=== PATIENT | female | born 1955 | race Caucasian/White ===

== ENCOUNTER 2018-07-20 07:30 | Inpatient (IN) | payer OTHER ==
[2018-08-09] MEDS ORDERED: Buffered Lidocaine 0.9% SYRIN* 5 ML/SYR SYRINGE INTRADERM ONE (10:04)
[2018-08-10] MEDS ORDERED: Morphine VIAL* 10 MG/ML 1 ML VIAL ONE (06:05)
--- OUTSIDE RECORDS SUMMARY | 2018-08-10 08:17 | XMS REPORT ---
:1955 External Reference #:[id number] Author Organization [facility] Address [address] [place] [address] Phone [phone] Care Team Providers Name Role Phone Hetal St NP Primary Care Physician Unavailable Payers Type Date Identification Numbers Payment Provider Subscriber Commercial Policy Number: [id number] [employer] Karly Espinoza Group Number: [id number] [address] PayID: [id number] [place] [address] Problems Date Description Provider Status Onset: 07/06/2013 Electrocardiogram abnormal Cezar Toledo M.D. Onset: 07/06/2013 Chest pain Cezar Toledo M.D. Onset: 07/06/2013 Tachycardia Cezar Toledo M.D. Onset: 07/06/2013 Mixed hyperlipidemia Cezar Toledo M.D. Onset: 07/06/2013 Obesity Cezar Toledo M.D. Onset: 07/06/2013 Dyspnea Cezar Toledo M.D. Onset: 08/15/2013 Preoperative cardiovascular Cezar Toledo examination MRafael Family History Date Family Member(s) Problem(s) Comments General Stomach Cancer General Thyroid Disease Father Thyroid Disease Father due to CHF () Mother Diabetes Siblings 5 Paternal Grandfather due to [place] () - 64 years, had 7 MIs Paternal Grandmother Thyroid Disease Paternal Grandmother due to Natural Causes () Maternal Grandfather due to Cancer () Maternal Grandmother Mental Illness Social History Type Date Description Comments Marital Status Lives With Spouse Occupation Retired ETOH Use Occasionally consumes alcohol Smoking Patient is a former smoker 35 years 1 1/2 PPD. quit 2006 Recreational Drug Use Denies Drug Use Daily Caffeine Consumes on average 1 cup of regular coffee per day Daily Caffeine Consumes on average 2 cups of hot tea per day Exercise Type/Frequency Exercises sporadically Allergies, Adverse Reactions, Alerts Date Description Reaction Status Severity Comments 07/06/2013 NKDA active Medications Medication Date Status Form Strength Qnty SIG Indications Ordering Provider Novolog Flexpen 00/00/ Active Solution 100Unit/M 20Fle sliding Unknown 0000 L xpen scale Lantus 0000/ Active Solution 100Unit/M 6Vial 45 units Unknown 0000 L s sliding scale Fluticasone / Active Suspension 50mcg/Act 16gm 1 spray Unknown Propionate 0000 each nostril daily as needed Metformin HCL / Active Tablets 1000mg 180ta 1 po bid Unknown 0000 bs Lisinopril / Active Tablets 2.5mg 90tab 1 po qd Unknown 0000 s Glimepiride / Active Tablets 4mg 90tab 1 by Unknown 0000 s mouth twice a day B Complex 00/00/ Active Capsules 1 po Unknown 0000 twice daily Vitamin D / Active Tablets 1000Unit 30tab 1 tab by Unknown 0000 s mouth daily Multivitamin 00/ Active Tablets 1 by Unknown Adult 0000 mouth every day Humalog 00// Active Solution 100Unit/M as Unknown 0000 L directed Atorvastatin / Active Tablets 40mg take 1 Unknown Calcium 0000 tablet at bedtime Levothyroxine / Active Tablets 150mcg 1 by Unknown Sodium 0000 mouth every day Esomeprazole / Active Capsules DR 40mg 1 by Unknown Magnesium 0000 mouth every day Cyclobenzaprine / Active Tablets 10mg 1 tablet Unknown HCL 0000 by mouth bid [place] 12/02/ Hx Tablets 5-325mg 20tab 1-2 tabs Gera 2013 by mouth Sharita 06/29/ daily as M.D. 2017 needed pain Percocet 09/21/ Hx Tablets 5-325mg 30tab 1 tab po Gera 2012 tid prn Sharita 06/29/ pain M.D. 2017 Zofran 09/15/ Hx Tablets 4mg 20tab take 1 2012 tab po q6 Sharita, 06/29/ prn M.D. 2017 nausea and vomiting [place] 06/08/ Hx Tablets 5-325mg 30tab 1 tab po 2012 qhs prn Sharita, 06/29/ pain M.D. 2017 Meloxicam 06/08/ Hx Tablets 7.5mg 60tab take 1 2012 tab po Sharita, 07/06/ bid M.D. 2012 Nexium / Hx Capsules DR 40mg 30cap 1 po qd Unknown 0000 - s 2017 Levoxyl / Hx Tablets 150mcg 30tab 1 po qd Unknown 0000 - s 2013 Pravastatin / Hx Tablets 20mg 30tab 1 tablet Unknown Sodium 0000 - s by mouth 2018 daily at bedtime Magnesium / Hx Tablets 2 caps Unknown 0000 - daily 2017 Vitamin C / Hx Capsules 1 po qd Unknown 0000 - 2017 Vital Signs Date Vital Result Comment 07/23/2018 Height 63 inches 5'3" Weight 184.00 lb w/shoes Heart Rate 64 /min BP Systolic Sitting 130 mmHg Lue reg cuff BP Diastolic Sitting 80 mmHg Lue reg cuff BMI (Body Mass Index) 32.6 kg/m2 Ejection Fraction 55-60% Echo 07/19/18 07/12/2018 Height 63 inches 5'3" Weight 189.38 lb Heart Rate 99 /min BP Systolic 140 mmHg left arm BP Diastolic 80 mmHg left arm BMI (Body Mass Index) 33.5 kg/m2 Ejection Fraction 55-60% 07/19/2013 Echocardiogram 01/13/2014 Heart Rate 82 /min BP Systolic 134 mmHg BP Diastolic 70 mmHg 12/02/2013 Heart Rate 100 /min BP Systolic 122 mmHg BP Diastolic 79 mmHg 11/02/2013 Heart Rate 111 /min BP Systolic 145 mmHg BP Diastolic 80 mmHg 08/15/2013 Height 63.5 inches 5'3.50" Weight 188.00 lb Heart Rate 100 /min BP Systolic Sitting 130 mmHg BP Diastolic Sitting 86 mmHg Respiratory Rate 20 /min BMI (Body Mass Index) 32.8 kg/m2 07/06/2013 Height 63.5 inches 5'3.50" Weight 193.00 lb Heart Rate 108 /min BP Systolic Sitting 150 mmHg BP Diastolic Sitting 78 mmHg Respiratory Rate 24 /min BMI (Body Mass Index) 33.6 kg/m2 Results Test Date Test Result H/L Range Note CBC No Diff 07/13/2018 White Blood Count 9.0 10^3/uL 3.5-10.8 Red Blood Count 4.18 10^6/uL 4.00-5.40 Hemoglobin 12.1 g/dL 12.0-16.0 Hematocrit 36 % 35-47 Mean Corpuscular Volume 87 fL 80-97 Mean Corpuscular Hemoglobin 29 pg 27-31 Mean Corpuscular HGB Conc 34 g/dL 31-36 Red Cell Distribution Width 13 % 10.5-15 Platelet Count 370 10^3/uL 150-450 Mean Platelet Volume 8.4 um3 7.4-10.4 Basic Metabolic Panel 07/13/2018 Sodium 136 mmol/L 135-145 Chloride 106 mmol/L 101-111 Co2 Carbon Dioxide 21 mmol/L Low 22-32 Glucose 177 mg/dL High 70-100 Blood Urea Nitrogen 31 mg/dL High 6-24 Creatinine 0.99 mg/dL High 0.51-0.95 BUN/Creatinine Ratio 31.3 High 8-20 Calcium 9.7 mg/dL 8.6-10.3 Egfr Non- 56.8 >60 Egfr 68.8 >60 1 Potassium 5.2 mmol/L High 3.5-5.0 Anion Gap 9 mmol/L 2-11 Laboratory test finding 05/11/2018 Surgical Interface Order SEE RESULT BELOW 2 1 Because ethnic data is not always readily available, this report includes an eGFR for both -Americans and non- Americans. The National Kidney Disease Education Program (NKDEP) does not endorse the use of the MDRD equation for patients that are not between the ages of 18 and 70, are , have extremes of body size, muscle mass, or nutritional status, or are non- or non-. According to the National Kidney Foundation, irrespective of diagnosis, the stage of the disease is based on the level of kidney function: Stage Description GFR(mL/min/1.73 m(2)) 1 Kidney damage with normal or decreased GFR 90 2 Kidney damage with mild decrease in GFR 60-89 3 Moderate decrease in GFR 30-59 4 Severe decrease in GFR 15-29 5 Kidney failure <15 (or dialysis) 2 SEE RESULT BELOW Name: KARLY ESPINOZA : [address]: Rolo Khoury MD Acct: [id number] Unit: [id number] AGE: 62 Location: ENDO Re05/11/18 SEX: F Status: DEP REF SPEC: [id number] ALICIA: 05/11/18-[address] [facility] [address]: Rolo Khoury MD REQ: [id number] RECD: 05/11/18 STATUS: EDUARDA CHAVEZ DR: Sohail Courtney MD _ ORDERED: LEVEL 4/2, IMMUNO-FIRST An H. pylori immunohistochemical stain, with appropriately reacting controls , was performed on sections cut from specimen one and is negative for Helicobacter organisms. Addendum Signed (signature on file) Stephanie Payton MD 11/29 1246 FINAL DIAGNOSIS 1. Stomach, body, biopsy: -- Gastric oxyntic gland mucosa with mild superficial chronic inflammation. -- No active gastritis nor Helicobacter pylori-like organisms identified. 2. Stomach, cardia, biopsy: --Gastric Cardia mucosa with no significant pathologic abnormality. -- No active gastritis nor Helicobacter pylori-like organisms identified. Comment: An immunohistochemical stain for Helicobacter pylori-like organisms is pending in part 1 and will be reported in an addendum. CLINICAL HISTORY Screening/Surveillance for malignancy in asymptomatic patient; stomach acid POST-OPERATIVE DIAGNOSIS EGD: larynx ? symmetric; esophagus ? normal, esophagogastric junction at 34 cm; stomach ? moderate hiatal hernia; duodenum ? normal; conclusion: hiatal hernia, gastroesophageal reflux disease; gastritis CONTINUED ON NEXT PAGE DEPARTMENT OF PATHOLOGY, [address] [place] [address] Chace Hanson M.D. Director [facility] # [id number] RUN DATE: 05/13/18 [facility] LAB LIVE PAGE 2 Patient: KARLY ESPINOZA [id number] (Continued) GROSS DESCRIPTION (Continued) GROSS DESCRIPTION 1. The specimen is received in formalin labeled, Biopsy Gastric Body, and consists of two alejo-yellow irregular soft tissue fragments averaging 0.7 x 0.2 x 0.1 cm which are submitted entirely in one cassette. 2. The specimen is received in formalin labeled, Biopsy Gastric Cardia, and consists of two alejo-pink irregular soft tissue fragments averaging 0.4 x 0.3 x 0.2 cm which are submitted entirely in one cassette. Signed by and Reported on: Chace Hanson MD 10/29 1314 END OF REPORT DEPARTMENT OF PATHOLOGY, [address] [place] [address] Chace Hanson M.D. Director [facility] # [id number] Procedures Date CPT Code Description Status 07/19/2018 54561 ECHO Transthoracic, Real-Time 2D With Doppler And Color Completed Flow 07/12/2018 96850 EKG Tracing & Interpretation Completed 09/12/2013 23811 Arthroscopy Shoulder,W/Rotator Cuff Repair Completed 09/12/2013 67107 Arthroscopy Shoulder,W/Rotator Cuff Repair Completed 09/12/2013 58418 Arthroscopy,Shoulder Decompression Of Subacromial Space Completed W/Acromio 09/12/2013 90234 Arthroscopy,Shoulder Decompression Of Subacromial Space Completed W/Acromio 08/04/2013 70011 Treadmill Interp/Report Only Completed 08/04/2013 20312 Stress Test Supervsn W/Out I/R Completed 07/19/2013 74041 ECHO Transthoracic, Real-Time 2D With Doppler And Color Completed Flow 07/14/2013 39396 Holter Monitoring 24 HR New Completed 07/06/2013 45918 EKG Tracing & Interpretation Completed 06/08/2013 50834 Rad Shoulder Comp, Min. 2 Views Completed Encounters Type Date Location Provider CPT E/M Dx Office Visit 07/12/2018 9:00a [facility] Zehra Lawson, 61659 E78.2 Yue.Jessie G47.33 I10 E66.01 E11.9 I27.20 I34.0 R94.31 Z68.33 Office Visit 01/13/2014 1:30p [facility]ango Schmid 73111 840.4 Of Inocente Glass Office Visit 08/15/2013 11:40a [facility] Javierciaran SantoyoJenaro 64374 785.0 Dejuan Lawson 786.05 272.2 278.00 V72.81 Office Visit 08/04/2013 8:30a [facility] Zehra Lawson, 88820 786.50 M.DJenaro 794.31 786.05 Office Visit 07/06/2013 1:40p [facility] Zehra Mcclellan Lulu, 45745 794.31 M.DJenaro 786.50 785.0 272.2 278.00 786.05 Office Visit 06/22/2013 9:45a [facility] Sheriff M.D. 01164 840.4 Tian Office Visit 06/08/2013 11:00a [facility] HJenaro 32341 840.4 Inocente Glass Plan of Care 07/23/2018 - Zehra Lawson M.D.R94.31 Abnormal electrocardiogram [ECG] [EKG]R94.39 Abnormal result of other cardiovascular function kqgheK23.33 Obstructive sleep apnea (adult) (pediatric)I10 Essential (primary) rwxhdxfvyqjgT70.2 Mixed wcxtabamyhnqrpZ68.810 Encounter for preprocedural cardiovascular examinationNew Labs:Cath PanelNew Orders:Cardiac Catheterization , LeftFollow up:f/u after cath for final clearance
--- OUTSIDE RECORDS SUMMARY | 2018-08-10 08:17 | XMS REPORT ---
:1955 External Reference #:[id number] Author Organization [facility] Address [address] [place] [address] [place] [address] Phone [phone] Care Team Providers Name Role Phone Olu Aviles MD Primary Care Physician Unavailable Payers Type Date Identification Numbers Payment Provider Subscriber Commercial Policy Number: [id number] [employer] Karly Espinoza Group Number: [id number] [address] PayID: [id number] [place] [address] Problems Date Description Provider Status Onset: 08/15/2013 Preoperative cardiovascular Cezar Toledo examination M.DJenaro Onset: 07/06/2013 Dyspnea Zehra Lawson Active MRafael Onset: 07/06/2013 Obesity Zehra Lawson Active MRafael Onset: 07/06/2013 Mixed hyperlipidemia Zehra Lawson Active Dejuan Onset: 07/06/2013 Tachycardia Cezar Toledo MRafael Onset: 07/06/2013 Chest pain Cezar Toledo M.D. Onset: 07/06/2013 Electrocardiogram abnormal Cezar Toledo M.D. Family History Date Family Member(s) Problem(s) Comments General Stomach Cancer General Thyroid Disease Father Thyroid Disease Father due to CHF () Mother Diabetes Siblings 5 Paternal Grandfather due to [place] () - 64 years, had 7 MIs [...] Qnty SIG Indications Ordering Provider Novolog Flexpen 00// Active Solution 100Unit/M 20Fle sliding Unknown 0000 L xpen scale Lantus / Active Solution 100Unit/M 6Vial 45 units Unknown [...] po Unknown 0000 twice daily Vitamin D 0000/ Active Tablets 1000Unit 30tab 1 tab by Unknown 0000 s mouth daily Multivitamin 00/ Active Tablets 1 by Unknown Adult 0000 mouth every day Humalog 00/ Active Solution 100Unit/M as Unknown 0000 L directed Atorvastatin / Active Tablets 40mg take 1 Unknown Calcium 0000 tablet at bedtime Levothyroxine / Active Tablets 150mcg 1 by Unknown Sodium 0000 mouth every day Esomeprazole / Active Capsules DR 40mg 1 by Unknown Magnesium 0000 mouth every day Cyclobenzaprine / Active Tablets 10mg 1 tablet Unknown HCL 0000 by mouth bid [place] 12/02/ Hx Tablets 5-325mg 20tab 1-2 tabs Gera 2013 by mouth Sharita, 06/29/ daily as M.D. 2018 needed pain Percocet 09/21/ Hx Tablets 5-325mg 30tab 1 tab po Gera 2012 tid prn Sharita, 06/29/ pain M.D. 2017 Zofran 09/15/ Hx Tablets 4mg 20tab take 1 2012 tab po q6 Sharita, 06/29/ prn M.D. 2017 nausea and vomiting [place] 06/08/ Hx Tablets 5-325mg 30tab 1 tab [...] 2017 Vital Signs Date Vital Result Comment 07/12/2018 Height 63 inches 5'3" Weight 189.38 [...] Test Date Test Result H/L Range Note Laboratory test 05/11/2018 Surgical Interface SEE RESULT BELOW 1 finding Order 1 SEE RESULT BELOW Name: KARLY ESPINOZA : [address]: Rolo Khoury MD Acct: [id number] Unit: [id number] AGE: 62 Location: ENDO Re05/11/18 SEX: F Status: DEP REF SPEC: [id number] ALICIA: 05/11/18-1005 [facility] DR: Rolo Khoury MD REQ: [id number] RECD: 05/11/18 STATUS: EDUARDA CHAVEZ DR: Sohail [...] CONTINUED ON NEXT PAGE DEPARTMENT OF PATHOLOGY, [address] [place] [address] Chace Hanson M.D. Director [facility] # [id number] RUN DATE: 05/13/18 [facility] LAB LIVE PAGE 2 Patient: KARLY ESPINOZA [id number] (Continued) GROSS DESCRIPTION (Continued) GROSS DESCRIPTION 1. [...] 1314 END OF REPORT DEPARTMENT OF PATHOLOGY, [address] [place] [address] Chace Hanson M.D. Director [facility] # [id number] Procedures Date CPT Code Description Status 07/12/2018 04266 EKG Tracing & Interpretation Completed 09/12/2013 19751 Arthroscopy Shoulder,W/Rotator Cuff Repair Completed 09/12/2013 63961 Arthroscopy Shoulder,W/Rotator Cuff Repair Completed 09/12/2013 75150 Arthroscopy,Shoulder Decompression Of Subacromial Space Completed W/Acromio 09/12/2013 69913 Arthroscopy,Shoulder Decompression Of Subacromial Space Completed W/Acromio 08/04/2013 70817 Treadmill Interp/Report Only Completed 08/04/2013 72932 Stress Test Supervsn W/Out I/R Completed 07/19/2013 03531 ECHO Transthoracic, Real-Time 2D With Doppler And Color Completed Flow 07/14/2013 48790 Holter Monitoring 24 HR New Completed 07/06/2013 42981 EKG Tracing & Interpretation Completed 06/08/2013 04706 Rad Shoulder Comp, Min. 2 Views Completed Encounters Type Date Location Provider CPT E/M Dx Office Visit 07/12/2018 9:00a [facility] Javierjoseph Lawson, 14533 E78.2 Dejuan E66.9 Z01.810 G47.33 I10 R94.31 Office Visit 01/13/2014 1:30p [facility] 30496 840.4 Of Inocente Glass Office Visit 08/15/2013 11:40a [facility] Zehra Santoyo. 58001 785.0 Dejuan Lawson 786.05 272.2 278.00 V72.81 Office Visit 08/04/2013 8:30a [facility] Zehra Lawson, 25041 786.50 M.DJenaro 794.31 786.05 Office Visit 07/06/2013 1:40p [facility] Zehra Lawson, 39278 794.31 M.DJenaro 786.50 785.0 272.2 278.00 786.05 Office Visit 06/22/2013 9:45a [facility] M.D. 42054 840.4 C.M.AJenaro Office Visit 06/08/2013 11:00a [facility] 53557 840.4 C.M.A. Inocente Lazar Plan of Care Future Appointment(s):07/26/2018 4:40 pm - Zehra Lawson M.D. at [facility]07/19/2018 2:00 pm - [facility] ECHO Schedule at [facility]07/21/2018 9:30 am - Zehra Lawson M.D. at [facility]10/2017 - Zehra Lawson M.D.E78.2 Mixed qpshprfbzdyfwwF33.9 Obesity, sdjcjucezylN69.810 Encounter for preprocedural cardiovascular examinationFollow up:5-7 wks ov for final fbrrjrdrcC59.33 Obstructive sleep apnea (adult) ( pediatric)I10 Essential (primary) ohtaxagkpczpQ38.31 Abnormal electrocardiogram [ECG] [EKG]New Orders:EchocardiogramStress Test, Pharmacologic Nuclear (Lexiscan )
--- OUTSIDE RECORDS SUMMARY | 2018-08-10 08:17 | XMS REPORT ---
:1955 External Reference #:[id number] Author Organization [facility] Address [address] [place] [address] Phone [phone] Care Team Providers Name Role Phone Olu Aviles MD Primary Care Physician Unavailable Payers Type Date Identification Numbers Payment Provider Subscriber Commercial Policy Number: [id number] [employer] Karly Espinoza Group Number: [id number] [address] PayID: [id number] [place] [address] Problems Date Description Provider Status Onset: 08/15/2013 [...] Diabetes Siblings 5 Paternal Grandfather due to [place] () - 64 years, had 7 MIs [...] tablet Unknown HCL 0000 by mouth bid [place] 12/02/ Hx Tablets 5-325mg 20tab 1-2 tabs Gera 2013 by mouth Sharita, 06/29/ daily as M.D. 2018 needed pain Percocet 09/21/ Hx Tablets 5-325mg 30tab 1 tab po Gera 2012 tid prn Sharita, 06/29/ pain M.D. 2017 Zofran 09/15/ Hx Tablets 4mg 20tab take 1 2012 tab po q6 Sharita, 06/29/ prn M.D. 2017 nausea and vomiting [place] 06/08/ Hx Tablets 5-325mg 30tab 1 tab [...] Unknown Sodium 0000 - s by mouth once 2018 daily at bedtime Magnesium / Hx [...] 150-450 Mean Platelet Volume 8.4 um3 7.4-10.4 Laboratory test finding 05/11/2018 Surgical Interface Order SEE RESULT BELOW 1 1 SEE RESULT BELOW Name: KARLY ESPINOZA : [address]: Rolo Khoury MD Acct: [id number] Unit: [id number] AGE: 62 Location: ENDO Re05/11/18 SEX: F Status: DEP REF SPEC: [id number] ALICIA: 05/11/18-[address] [facility] [address]: Rolo Khoury MD REQ: [id number] RECD: 05/11/18 STATUS: EDUARDA CHAVEZ DR: Sohail [...] CONTINUED ON NEXT PAGE DEPARTMENT OF PATHOLOGY, [address] [place] [address] Chace Hanson M.D. Director [place] # [id number] RUN DATE: 05/13/18 [facility] LAB LIVE PAGE 2 Patient: ESPINOZAKARLY Dain [id number] (Continued) GROSS DESCRIPTION (Continued) GROSS DESCRIPTION 1. [...] 1314 END OF REPORT DEPARTMENT OF PATHOLOGY, [address] [place] [address] Chace Hanson M.D. Director [facility] # [id number] Procedures Date CPT Code Description Status 07/12/2018 18981 EKG Tracing & Interpretation Completed 09/12/2013 04729 Arthroscopy Shoulder,W/Rotator Cuff Repair Completed 09/12/2013 87150 Arthroscopy Shoulder,W/Rotator Cuff Repair Completed 09/12/2013 20289 Arthroscopy,Shoulder Decompression Of Subacromial Space Completed W/Acromio 09/12/2013 67000 Arthroscopy,Shoulder Decompression Of Subacromial Space Completed W/Acromio 08/04/2013 29557 Treadmill Interp/Report Only Completed 08/04/2013 89979 Stress Test Supervsn W/Out I/R Completed 07/19/2013 40238 ECHO Transthoracic, Real-Time 2D With Doppler And Color Completed Flow 07/14/2013 92366 Holter Monitoring 24 HR New Completed 07/06/2013 69680 EKG Tracing & Interpretation Completed 06/08/2013 70998 Rad Shoulder Comp, Min. 2 Views Completed Encounters Type Date Location Provider CPT E/M Dx Office Visit 01/13/2014 [facility] 45727 840.4 1:30p Inocente Glass Office Visit 08/15/2013 [facility] Zehra Mcclellan 49620 785.0 11:40a Dejuan Lawosn 786.05 272.2 278.00 V72.81 Office Visit 08/04/2013 8:30a [facility] Zehra Lawson, 44002 786.50 M.DJenaro 794.31 786.05 Office Visit 07/06/2013 1:40p [facility] Zehra Lawson, 55260 794.31 M.DJenaro 786.50 785.0 272.2 278.00 786.05 Office Visit 06/22/2013 9:45a [facility] M.D. 36704 840.4 C.Arti Office Visit 06/08/2013 11:00a [facility] 38506 840.4 Inocente lGass Plan of Care Future Appointment(s):07/23/2018 1:20 pm - Zehra Lawson M.D. at [facility]07/19/2018 2:00 pm - [facility] ECHO Schedule at [facility]07/21/2018 9:30 am - Zehra Lawson M.D. at [facility]10/2017 - Zehra Lawson M.D.E78.2 Mixed diczzzgsaacljnK59.9 Obesity, itwfvmjqfloN59.810 Encounter for preprocedural cardiovascular examinationFollow up:5-7 wks ov for final ldygbnxrfR39.33 Obstructive sleep apnea (adult) ( pediatric)I10 Essential (primary) pjembsukhpoaN14.31 Abnormal electrocardiogram [ECG] [EKG]New Orders:EchocardiogramStress Test, Pharmacologic Nuclear (Lexiscan )
--- OUTSIDE RECORDS SUMMARY | 2018-08-10 08:17 | XMS REPORT ---
:1955 External Reference #:[id number] Author Organization [facility] Address [address] [place] [address] [place] [address] Phone [phone] Care Team Providers Name Role Phone Hetal St NP Primary Care Physician Unavailable Payers Type Date Identification Numbers Payment Provider Subscriber Commercial Policy Number: [id number] [employer] Karly Espinoza Group Number: [id number] [id number] PayID: [id number] [place] [address] Problems Date Description Provider Status Onset: 07/06/2013 Electrocardiogram abnormal Cezar Toledo M.D. Onset: 07/06/2013 Chest pain Cezar Toledo M.D. Onset: 07/06/2013 Tachycardia Cezar Toledo M.D. Onset: 07/06/2013 Mixed hyperlipidemia Cezar Toledo M.D. Onset: 07/06/2013 Obesity Cezar Toledo M.D. Onset: 07/06/2013 Dyspnea Cezar Toledo M.D. Onset: 08/15/2013 Preoperative cardiovascular Cezar Toledo examination Dejuan Onset: 08/05/2018 Encounter for planned Emerson Tang M.D., [facility], Active postprocedural wound closure [facility] Family History Date Family Member(s) Problem(s) Comments General Stomach Cancer General Thyroid Disease Father Thyroid Disease Father due to CHF () Mother Diabetes Siblings 5 Paternal Grandfather due to ME () - 64 years, had 7 MIs [...] Qnty SIG Indications Ordering Provider Novolog Flexpen / Active Solution 100Unit/M 20Fle sliding Unknown 0000 [...] s mouth twice a day B Complex 00/ Active Capsules 1 po Unknown 0000 twice daily Vitamin D / Active Tablets 1000Unit 30tab 1 tab by Unknown 0000 s mouth daily Multivitamin / Active Tablets 1 by Unknown Adult 0000 mouth every day Humalog / Active Solution 100Unit/M as Unknown 0000 L directed Atorvastatin / Active Tablets 40mg take 1 Unknown Calcium 0000 tablet at bedtime Levothyroxine / Active Tablets 150mcg 1 by Unknown Sodium 0000 mouth every day Esomeprazole / Active Capsules DR 40mg 1 by Unknown Magnesium 0000 mouth every day Cyclobenzaprine / Active Tablets 10mg 1 tablet Unknown HCL 0000 by mouth bid [place] 12/02/ Hx Tablets 5-325mg 20tab 1-2 tabs Gera 2013 - s by mouth Sharita 06/29/ daily as M.D. 2018 needed pain Percocet 09/21/ Hx Tablets 5-325mg 30tab 1 tab po 2012 tid prn Sharita, 06/29/ pain M.D. 2017 Zofran 09/15/ Hx Tablets 4mg 20tab take 1 2012 tab po q6 Sharita, 06/29/ prn M.D. 2018 nausea and vomiting [place]wood 06/08/ Hx Tablets 5-325mg 30tab 1 tab [...] Tablets 20mg 30tab 1 tablet Unknown Sodium - s by mouth 06/29/ once 2018 daily at bedtime Magnesium / Hx Tablets 2 caps Unknown 0000 - daily 2017 Vitamin C / Hx Capsules 1 po qd Unknown 0000 - 2017 Vital Signs Date Vital Result Comment 08/05/2018 Height 63 inches 5'3" Weight 185.00 lb Heart Rate 76 /min BP Systolic Sitting 110 mmHg Lue lg cuff BP Diastolic Sitting 74 mmHg Lue lg cuff BP Systolic Standing 114 mmHg Lue BP Diastolic Standing 76 mmHg Lue Respiratory Rate 14 /min BMI (Body Mass Index) 32.8 kg/m2 Ejection Fraction 55-60% as of 07/19/18 echo 07/23/2018 Height 63 inches 5'3" Weight 184.00 [...] Result H/L Range Note CBC No Diff 08/05/2018 White Blood Count 9.6 10^3/uL 3.5-10.8 1 Red Blood Count 4.33 10^6/uL 4.00-5.40 1 Hemoglobin 12.8 g/dL 12.0-16.0 1 Hematocrit 38 % 35-47 1 Mean Corpuscular Volume 87 fL 80-97 1 Mean Corpuscular Hemoglobin 30 pg 27-31 1 Mean Corpuscular HGB Conc 34 g/dL 31-36 1 Red Cell Distribution Width 13 % 10.5-15 1 Platelet Count 398 10^3/uL 150-450 1 Mean Platelet Volume 8.7 um3 7.4-10.4 1 Basic Metabolic Panel 08/05/2018 Sodium 140 mmol/L 135-145 1 Potassium 5.0 mmol/L 3.5-5.0 1 Chloride 107 mmol/L 101-111 1 Co2 Carbon Dioxide 22 mmol/L 22-32 1 Anion Gap 11 mmol/L 2-11 1 Glucose 107 mg/dL High 70-100 1 Blood Urea Nitrogen 25 mg/dL High 6-24 1 Creatinine 0.92 mg/dL 0.51-0.95 1 BUN/Creatinine Ratio 27.2 High 8-20 1 Calcium 10.2 mg/dL 8.6-10.3 1 Egfr Non- 61.9 >60 1 Egfr 74.8 >60 1, 2 Laboratory test finding 07/29/2018 Point of Care Glucose 262 mg/dL High 70 -100 3 CBC No Diff 07/13/2018 White Blood Count [...] Egfr Non- 56.8 >60 Egfr 68.8 >60 4 Potassium 5.2 mmol/L High 3.5-5.0 Anion Gap 9 mmol/L 2-11 Laboratory test finding 05/11/2018 Surgical Interface Order SEE RESULT BELOW 5 1 AA 08/10 2 Because ethnic data is not always readily [...] 15-29 5 Kidney failure <15 (or dialysis) 3 Verifying Specialist: [id number] 4 Because ethnic data is not always readily [...] 15-29 5 Kidney failure <15 (or dialysis) 5 SEE RESULT BELOW Name: ESPINOZAKARLY E : [address]: Rolo Khoury MD Acct: [id number] Unit: [id number] AGE: 62 Location: [facility] Re05/11/18 SEX: F Status: DEP REF SPEC: [id number] ALICIA: 05/11/18-1005 [facility] DR: Rolo Khoury MD REQ: [id number] RECD: 05/11/18 STATUS: EDUARDA CHAVEZ DR: Sohail [...] CONTINUED ON NEXT PAGE DEPARTMENT OF PATHOLOGY, [address] [place] [address] Chace Hanson M.D. Director [facility] # [id number] RUN DATE: 05/13/18 [facility] LAB LIVE PAGE 2 Patient: DAVIDKARLY Dain [id number] (Continued) GROSS DESCRIPTION (Continued) GROSS DESCRIPTION 1. [...] 1314 END OF REPORT DEPARTMENT OF PATHOLOGY, [address] [place] [address] Chace Hanson M.D. Director [facility] # [id number] Procedures Date CPT Code Description Status 07/29/2018 63098 Cath PLMT&NJX L Ventriculog Img S&I Completed 07/21/2018 44789 Treadmill Interp/Report Only Completed 07/21/2018 88243 Stress Test Supervsn W/Out I/R Completed 07/19/2018 11751 ECHO Transthoracic, Real-Time 2D With Doppler And Color Completed Flow 07/19/2018 72969 ECHO Transthoracic, Real-Time 2D With Doppler And Color Completed Flow 07/12/2018 59923 EKG Tracing & Interpretation Completed 09/12/2013 09891 Arthroscopy Shoulder,W/Rotator Cuff Repair Completed 09/12/2013 84156 Arthroscopy Shoulder,W/Rotator Cuff Repair Completed 09/12/2013 97841 Arthroscopy,Shoulder Decompression Of Subacromial Space Completed W/Acromio 09/12/2013 35348 Arthroscopy,Shoulder Decompression Of Subacromial Space Completed W/Acromio 08/04/2013 63074 Treadmill Interp/Report Only Completed 08/04/2013 92012 Stress Test Supervsn W/Out I/R Completed 07/19/2013 60883 ECHO Transthoracic, Real-Time 2D With Doppler And Color Completed Flow 07/14/2013 88647 Holter Monitoring 24 HR New Completed 07/06/2013 97802 EKG Tracing & Interpretation Completed 06/08/2013 87237 Rad Shoulder Comp, Min. 2 Views Completed Encounters Type Date Location Provider CPT E/M Dx Office Visit 07/23/2018 3:00p [facility] Qutaybeh S. 34113 R94.31 Dejuan Lawson R94.39 G47.33 I10 E78.2 Z01.810 Office Visit 07/12/2018 9:00a [facility] Qutaybeh SJenaro Lawson, 18496 E78.2 Dejuan G47.33 I10 E66.01 E11.9 I27.20 I34.0 R94.31 Z68.33 Office Visit 01/13/2014 1:30p [facility] Mango Schmid 96019 840.4 Of nIocente Glass Office Visit 08/15/2013 11:40a [facility] Qutaybeh S. 89425 785.0 Dejuan Lawson 786.05 272.2 278.00 V72.81 Office Visit 08/04/2013 8:30a [facility] Qutaybeh S. haydah, 59545 786.50 MJenaroDJenaro 794.31 786.05 Office Visit 07/06/2013 1:40p [facility] Qutaybeh S. haydah, 81991 794.31 MJenaroDJenaro 786.50 785.0 272.2 278.00 786.05 Office Visit 06/22/2013 9:45a [facility] Sheriff M.D. 23879 840.4 CChidi Office Visit 06/08/2013 11:00a [facility] 58724 840.4 Inocente Glass Plan of Care Future Appointment(s):08/24/2018 4:40 pm - Zehra Lawson M.D. at [facility]08/05/2018 - Emerson Tang M.D., [facility], [id number] Encounter for planned postprocedural wound closureComments:Your catheterization site appears to be healing well.Recommendations:Continue current medications . Follow up with your primary foxpro developer, Dr. Lawson.
[2018-08-10] MEDS ORDERED: Heparin VIAL(*) 5000 UNITS/ML VIAL (FIVE THOUSAND) ONE (08:19)
[2018-08-10] MEDS ORDERED: ceFAZolin 2 GM PREMIX in ORs 2 GM/50 ML BAG IVPB ONE (08:19)
[2018-08-10] MEDS ORDERED: Buffered Lidocaine 0.9% SYRIN* 5 ML/SYR SYRINGE ONE (08:20)
[2018-08-10] MEDS ORDERED: Naloxone* 0.4 MG/ML 1 ML VIAL IV PRN (08:53)
[2018-08-10] MEDS ORDERED: DiMENhydriNATE IV* 50 MG/ML VIAL IV PUSH PRN (08:53)
[2018-08-10] MEDS ORDERED: Methylene Blue 0.5 %* 50 MG/10 ML AMP IV ONE (09:27)
[2018-08-10] MEDS ORDERED: Ropivacaine* 2 MG/ML 20 ML VIAL (0.2%) ONE (09:27)
[2018-08-10] MEDS ORDERED: Propofol* 10 MG/ML 20 ML BTL IV PUSH ONE (09:35)
[2018-08-10] MEDS ORDERED: Lidocaine 2% PF * 5 ML VIAL ONE (09:35)
[2018-08-10] MEDS ORDERED: Rocuronium* 10 MG/ML VIAL ONE (09:36)
[2018-08-10] MEDS ORDERED: fentaNYL* 50 MCG/ML 2 ML VIAL (100 MCG VIAL) ONE ×3 (09:57→13:18)
[2018-08-10] MEDS ORDERED: Bupivacaine 0.25% SDV* 30 ML ONE (10:20)
[2018-08-10] MEDS ORDERED: Cisatracurium* 2 MG/ML MDV 5 ML ONE (11:33)
[2018-08-10] MEDS ORDERED: Glycopyrrolate IV* 0.2 MG/ML 1 ML VIAL ONE (11:40)
[2018-08-10] MEDS ORDERED: Neostigmine Methylsulfate* 1 MG/ML 10 ML VIAL (1 mg/ml) ONE (11:40)
[2018-08-10] MEDS ORDERED: Ondansetron INJ* 2 MG/ML VIAL ONE (11:40)
--- NOTE | 2018-08-10 12:42 | OP ---
Operative Report - Blank - Operative Report Date of Operation: 08/10/18 Note: Brief Operative Note Preop Dx: morbid obesity; hiatal hernia Postop Dx: same; insignificant hiatal hernia Procedure: laparoscopic Angelica en Y gastric bypass Anesthesia: GET Surgeon: Sherwin General Laborer: DOTTIE De La Fuente Fluids: 2000 ml RL EBL: < 50 ml Specimen: none Drains: none Findings: dictated
[2018-08-10] MEDS ORDERED: HYDROmorphone INJ1* 1 MG/ML SYRINGE IV PRN (12:43)
[2018-08-10] MEDS ORDERED: Acetaminophen ADULT LIQ* 650 MG/20.3 ML UDC PO PRN (12:43)
[2018-08-10] MEDS ORDERED: diPHENhydraMINE IV* 50 MG/ML 1 ml VIAL (BENADRYL) SLOW PUSH PRN (12:43)
[2018-08-10] MEDS ORDERED: Ondansetron ODT TAB* 4 MG SL PRN (12:43)
[2018-08-10] MEDS ORDERED: HYDROcodone/ACET. 7.5/325 LIQ* 15 ML UDC PO PRN (12:43)
[2018-08-10] MEDS: fentaNYL* 50 MCG/ML 2 ML VIAL (100 MCG VIAL) IV PRN ×5 (12:45→13:19)
[2018-08-10] MEDS ORDERED: Fluticasone NASAL SPRAY 50MCG* 16 gm SPRAY BTL BOTH NARES PRN (12:48)
[2018-08-10] MEDS ORDERED: Insulin LISPRO* 1 UNITS UNIT SUBCUT ONE (12:49)
[2018-08-10] MEDS ORDERED: Dextrose 50% Syringe 50 ML* 25 GM/50 ML SYRINGE IV PUSH PRN (12:54)
[2018-08-10] MEDS ORDERED: Acetaminophen IV 1GM/100ML * 100 ML ONE (13:45)
[2018-08-10] MEDS ORDERED: Acetaminophen IV 1GM/100ML * 100 ML IVPB ONE (14:00)
[2018-08-10] MEDS ORDERED: fentaNYL* 50 MCG/ML 2 ML VIAL (100 MCG VIAL) IV ONE (14:00)
[2018-08-10] MEDS: Ketorolac INJ* 30 MG/ML 1 ML VIAL IV PRN (15:54)
[2018-08-10] MEDS: Heparin VIAL(*) 5000 UNITS/ML VIAL (FIVE THOUSAND) SUBCUT SCH ×2 (15:55→22:33)
[2018-08-10] MEDS: Insulin GLARGINE(*) 1 UNITS UNIT SUBCUT SCH (16:49)
--- NOTE | 2018-08-10 17:59 | CONS ---
CC: Dr. Courtney; Hetal St NP * CONSULTATION REPORT: DATE OF CONSULT: 08/10/18 REQUESTING PROVIDER: Dr. Courtney. PRIMARY CARE PROVIDER: Hetal St NP HISTORY OF PRESENT ILLNESS: Mrs. Espinoza is a 62-year-old lady with a past medical history of morbid obesity, type 2 diabetes, obstructive sleep apnea, hypertension, who presented on 08/10/18 for an elective Angelica-en-Y with Dr. Courtney and the hospitalist service was consulted for management of her comorbidities. At the time of my evaluation, the patient is still lightly sedated and her only complaint is pain. PAST MEDICAL HISTORY: 1. Obesity with a BMI of 32.8. 2. Type 2 diabetes. 3. Obstructive sleep apnea. 4. Hypertension. PAST SURGICAL HISTORY: 1. Status post . 2. Status post thyroidectomy. 3. Status post rotator cuff repair. FAMILY HISTORY: Maternal grandfather had gastric cancer and 2 sisters had thyroid disease requiring thyroidectomy as well as her father. Her mother was obese and had diabetes. SOCIAL HISTORY: The patient drinks alcohol occasionally. No history of tobacco abuse. She is , lives with her spouse. Surrogate decision maker is her , Ervin Espinoza, phone number is [phone]. REVIEW OF SYSTEMS: Unable to obtain as the patient is still recovering from general anesthesia at this time. PHYSICAL EXAM: Vital Signs: Temperature 96.8, heart rate is 82, respiratory rate 12, oxygen saturation 96% on 2 L nasal cannula, blood pressure is 142/84. General: The patient is an elderly lady, lying in bed, in no acute distress. CVS: Normal S1, S2. Regular rate and rhythm. Chest: Breath sounds present bilaterally with no added sounds. Abdomen: Bowel sounds are present, but sluggish. Neuro: She is arousable to voice, oriented to self and place. ASSESSMENT AND PLAN: Mrs. Espinoza is a 62-year-old lady with a past medical history of obesity with a BMI of 32.8, uncontrolled type 2 diabetes, hypertension, hyperlipidemia, who was admitted for an elective Angelica-en-Y and the hospitalist service was consulted to help manage her comorbidities. 1. Status post Angelica-en-Y. Management as per General Surgery. 2. Type 2 diabetes. The patient is n.p.o. at this point and we are going to continue her Lantus half of its usual dose with lispro sliding scale and monitor her fingersticks. Her metformin and glimepiride are on hold. 3. Hypertension. The patient will be continued on her lisinopril when she is able to take p.o. 4. Hyperlipidemia. We will resume her atorvastatin when she can take p.o. 5. Obstructive sleep apnea. We are going to monitor her oxygen saturation and she will have her CPAP during naps and to sleep at night. 6. DVT prophylaxis will be as per General Surgery. 7. Code status is full. TIME SPENT: Approximately 40 minutes was spent with the patient's interview, medical records review, and physical examination to complete this consultation. [id number]/[facility] #: [id number] GONSALO
[2018-08-10] MEDS: Insulin LISPRO* 1 UNITS UNIT SUBCUT SCH (18:23)
[2018-08-10] MEDS: Famotidine IV* 10 MG/ML 2 ML (20 mg) IV SLOW PU SCH (20:30)
[2018-08-10] MEDS: HYDROmorphone INJ1* 1 MG/ML SYRINGE IV PRN (20:30)
[2018-08-10] MEDS ORDERED: Insulin GLARGINE(*) 1 UNITS UNIT SUBCUT SCH (21:00)
[2018-08-11] MEDS: HYDROmorphone INJ1* 1 MG/ML SYRINGE IV PRN ×3 (00:15→09:20)
[2018-08-11] MEDS: Insulin LISPRO* 1 UNITS UNIT SUBCUT SCH ×4 (02:02→17:51)
[2018-08-11] MEDS: Heparin VIAL(*) 5000 UNITS/ML VIAL (FIVE THOUSAND) SUBCUT SCH ×3 (06:20→23:08)
[2018-08-11] MEDS: Insulin GLARGINE(*) 1 UNITS UNIT SUBCUT SCH (08:52)
[2018-08-11] MEDS: Famotidine IV* 10 MG/ML 2 ML (20 mg) IV SLOW PU SCH ×2 (08:53→21:01)
--- NOTE | 2018-08-11 09:52 | PN ---
Subjective Date of Service: 08/11/18 Interval History: Pt resting comfortably in bed. Abdomen is diffusely tender, but pt says pain is well controlled on current regimen. Denies shortness of breath, chest pain, palpitations, Nausea/vomiting. Ambulated without difficulty around the unit this morning, but did feel a little lightheaded when she first got up. Objective Active Medications: Acetaminophen (Tylenol Adult Liq*) 650 mg PO Q6H PRN PRN Reason: Temp > 101 F Or Mild Pain Hydrocodone Bitart/Acetaminophen (Nortab 7.5/325 Liq*) 15 ml PO Q6H PRN PRN Reason: PAIN Dextrose (D50w Syringe 50 Ml*) 12.5 gm IV PUSH .FOR FS < 60 - SS PRN PRN Reason: FS < 60 Diphenhydramine HCl (Benadryl Iv*) 25 mg SLOW PUSH Q6H PRN PRN Reason: ITCHING Famotidine (Pepcid Iv*) 20 mg IV SLOW PU BID [facility] Last Admin: 08/11/18 08:53 Dose: 20 mg Fluticasone Propionate (Flonase Nasal [place] 50mcg*) 1 spray BOTH NARES DAILY PRN PRN Reason: Allergy Symptoms Heparin Sodium (Porcine) (Heparin Vial(*)) 5,000 units SUBCUT Q8HR [facility] Last Admin: 08/11/18 06:20 Dose: 5,000 units Hydromorphone HCl (Dilaudid Inj1s*) 0.5 mg IV Q3H PRN PRN Reason: moderate Pain Hydromorphone HCl (Dilaudid Inj1s*) 1 mg IV Q3H PRN PRN Reason: moderately severe pain Last Admin: 08/11/18 09:20 Dose: 1 mg Potassium Chloride/Dextrose (D5w 1/2 Ns Kcl 20 Meq 1000 Ml*) 1,000 mls @ 125 mls/hr IV PER RATE [facility] Lactated Ringer's (Lactated Ringers 1000 Ml Bag*) 1,000 mls @ 150 mls/hr IV PER RATE [facility] Stop: 08/11/18 12:44 Last Admin: 08/11/18 04:05 Dose: 150 mls/hr Insulin Glargine (Lantus(*)) 17 units SUBCUT DAILY [facility] Last Admin: 08/11/18 08:52 Dose: 17 units Insulin Human Lispro (Humalog*) 0 units SUBCUT Q6HR [facility]; Protocol Last Admin: 08/11/18 06:25 Dose: 2 units Ketorolac Tromethamine (Toradol Inj*) 30 mg IV Q6H PRN PRN Reason: PAIN Stop: 08/12/18 12:44 Last Admin: 08/10/18 15:54 Dose: 30 mg Ondansetron HCl (Zofran Inj*) 4 mg IV Q6H PRN PRN Reason: NAUSEA/VOMITING Ondansetron HCl (Zofran Odt Tab*) 4 mg SL Q6H PRN PRN Reason: NAUSEA/VOMITING Vital Signs - 8 hr 08/11/18 08/11/18 08/11/18 02:00 04:00 04:12 Temperature Pulse Rate Respiratory 18 18 Rate Blood Pressure (mmHg) O2 Sat by Pulse 96 Oximetry 08/11/18 08/11/18 08/11/18 04:39 06:00 06:21 Temperature 98.0 F Pulse Rate 81 Respiratory 16 17 18 Rate Blood Pressure 120/56 (mmHg) O2 Sat by Pulse 97 Oximetry 08/11/18 08/11/18 07:37 09:20 Temperature 97.9 F Pulse Rate 85 Respiratory 16 16 Rate Blood Pressure 125/60 (mmHg) O2 Sat by Pulse 97 Oximetry Oxygen Devices in Use Now: Nasal Cannula - 2L, CPAP Eyes: No Scleral Icterus, PERRLA Ears/Nose/Mouth/Throat: NL Teeth, Lips, Gums, Clear Oropharnyx, Mucous Membranes Moist Neck: NL Appearance and Movements; NL JVP, Trachea Midline Respiratory: Symmetrical Chest Expansion and Respiratory Effort, Clear to Auscultation Cardiovascular: NL Sounds; No Murmurs; No JVD, RRR, No Edema Abdominal: - - Normoactive bowel sounds x4. Abdomen soft and diffusely tender. Abdominal incision dressings clean and dry. Extremities: No Edema, No Clubbing, Cyanosis Skin: No Rash or Ulcers, No Nodules or Sclerosis Neurological: Alert and Oriented x 3, NL Muscle Strength and Tone Lines/Tubes/Other Access: Clean, Dry and Intact Galaviz, Clean, Dry and Intact Peripheral IV Nutrition: - - NPO Assess/Plan/Problems-Billing Assessment: Ms. Espinoza is a 62 year old female with a H morbid obesity (BMI 32.8), DHRUV (CPAP at night), T2DM, Hypothyroidism, HTN, GERD admitted for elective routine Angelica-en-Y procedure with Dr Courtney. POD 1 - Patient Problems (1) Status post gastric bypass for obesity Current Visit: Yes Status: Acute Code(s): Z98.84 - BARIATRIC SURGERY STATUS SNOMED Code(s): 812918504 Comment: - S/p laproscopic Angelica-en-y with Dr Courtney. POD 1. - Plan per primary team, general surgery (2) Diabetes Current Visit: Yes Status: Acute Code(s): E11.9 - TYPE 2 DIABETES MELLITUS WITHOUT COMPLICATIONS SNOMED Code(s): 59441165 Comment: - Patient is still NPO. Fingersticks have been 130s-140s. - Currently on 17 units lantus, which is half her home dose, along with lispro sliding scale. Plan to increase lantus when taking PO, or if fingersticks reflect hyperglycemia. (3) Hypertension Current Visit: Yes Status: Acute Code(s): I10 - ESSENTIAL (PRIMARY) HYPERTENSION SNOMED Code(s): 20475411 Comment: - BP well controlled. 125/60 this am. Can restart lisinopril when taking PO. Pt says this is more for kidney than BP (4) Hypothyroid Current Visit: Yes Status: Acute Code(s): E03.9 - HYPOTHYROIDISM, UNSPECIFIED SNOMED Code(s): 17512403 Comment: - Restart home synthroid when taking PO - 150 mcg QAM. (5) Morbid obesity Current Visit: Yes Status: Acute Code(s): E66.01 - MORBID (SEVERE) OBESITY DUE TO EXCESS CALORIES SNOMED Code(s): 529005133 Comment: - BMI 32.8 (6) DVT prophylaxis Current Visit: Yes Status: Acute Code(s): AAR6382 - SNOMED Code(s): 243662973 Comment: - Heparin SQ, per primary team (7) Full code status Current Visit: Yes Status: Acute Code(s): Z78.9 - OTHER SPECIFIED HEALTH STATUS SNOMED Code(s): 940902461 Status and Disposition: Plan per primary team, general surgery. Attending: Berenice Webb
[2018-08-11] MEDS: Ondansetron INJ* 2 MG/ML VIAL IV PRN ×2 (11:20→23:18)
[2018-08-11] MEDS: D5W 1/2 NS KCl 20 Meq 1000 ML* 1,000 ML IV SCH ×2 (14:48→23:05)
[2018-08-11] MEDS: Ketorolac INJ* 30 MG/ML 1 ML VIAL IV PRN ×2 (14:49→20:57)
[2018-08-11] MEDS ORDERED: Metoclopramide IV* 5 MG/ML 2 ML VIAL IV PRN (15:30)
[2018-08-11] MEDS ORDERED: Scopolamine 1.5 mg* PATCH TRANSDERM SCH (16:00)
[2018-08-11] MEDS: Levothyroxine TAB* 150 MCG TAB PO SCH (17:24)
--- NOTE | 2018-08-11 18:21 | PN ---
Progress Note - Progress Note Date of Service: 08/11/18 Note: S: POD #1. Seen earlier by Dr. Courtney. Had some nausea earlier, but this has passed. Drinking clears, but feels full. Passing flatus. O: Vital Signs - 8 hr 08/11/18 08/11/18 08/11/18 10:20 11:09 12:00 Temperature 98.2 F Pulse Rate 82 Respiratory 16 16 16 Rate Blood Pressure 122/61 (mmHg) O2 Sat by Pulse 94 97 Oximetry 08/11/18 08/11/18 08/11/18 14:00 15:39 16:00 Temperature 99.1 F Pulse Rate 77 Respiratory 20 22 20 Rate Blood Pressure 127/63 (mmHg) O2 Sat by Pulse 97 100 97 Oximetry Intake and Output Last 24 Hours 08/09/18 08/10/18 08/11/18 08/12/18 06:59 06:59 06:59 06:59 Intake Total 3460 1041 Output Total 2700 225 Balance 760 816 Weight 185 lb 3.2 oz Intake: IV Fluids 3460 981 LR 3460 981 Oral 0 60 Output: Urine 250 0 Galaviz 2450 225 Other: # Bowel Movements 0 Gen: appears comfortable; NAD Heart: reg Lungs; clear Abd: obese; lap sites w/ small amts of light drainage; soft; incisional tenderness as expected Laboratory Tests 08/10/18 08/11/18 08/11/18 23:52 06:21 09:27 POC Glucose (mg/dL) 130 H 133 H 147 H 08/11/18 08/11/18 12:05 17:37 POC Glucose (mg/dL) 171 H 182 H A: s/p gastric bypass, doing well P: cont clear liqs; Lantus increased by hospitalist; will follow fs
[2018-08-12] MEDS: Insulin LISPRO* 1 UNITS UNIT SUBCUT SCH ×2 (00:49→06:37)
[2018-08-12] MEDS: Levothyroxine TAB* 150 MCG TAB PO SCH (06:20)
[2018-08-12] MEDS: Heparin VIAL(*) 5000 UNITS/ML VIAL (FIVE THOUSAND) SUBCUT SCH (06:22)
[2018-08-12] MEDS: Ketorolac INJ* 30 MG/ML 1 ML VIAL IV PRN (06:33)
[2018-08-12] MEDS: D5W 1/2 NS KCl 20 Meq 1000 ML* 1,000 ML IV SCH (07:20)
[2018-08-12] MEDS ORDERED: Insulin GLARGINE(*) 1 UNITS UNIT SUBCUT SCH (09:00)
[2018-08-12] MEDS: Famotidine IV* 10 MG/ML 2 ML (20 mg) IV SLOW PU SCH (09:37)
--- NOTE | 2018-08-12 10:18 | OP ---
CC: Hetal St NP * DATE OF OPERATION: 08/10/18 - ROOM #351 DATE OF : 55 SURGEON: Sohail Courtney MD MARKETING SALES MANAGER: DOTTIE Giron ANESTHESIA: General endotracheal. PRE-OP DIAGNOSIS: Morbid obesity. POST-OP DIAGNOSIS: Morbid obesity. OPERATIVE PROCEDURE: Laparoscopic Angelica-en-Y gastric bypass. ESTIMATED BLOOD LOSS: Less than 50 mL. IV FLUIDS: Crystalloid. SPECIMENS: None. DRAINS: None. COMPLICATIONS: None. COUNTS: Instrument, needle, and sponge counts correct. DESCRIPTION OF PROCEDURE: The patient was brought to the operating room and placed on the table supine. Sequential compression devices were placed on both lower extremities and general anesthesia was administered. Galaviz catheter was placed. She was positioned and padded appropriately. She was prepped and draped in the usual sterile fashion and time-out was performed. Local anesthetic was infiltrated into the skin and soft tissue prior to making each incision. Entry to the abdomen was through a left upper quadrant incision accommodating a 12-mm optical trocar. After accessing the peritoneal cavity, carbon dioxide was insufflated to a pressure of 15 mmHg. Under direct visualization, 12-mm bladeless trocars were placed in the supraumbilical midline and right upper quadrant. 5-mm trocars were placed in right upper quadrant medially and left upper quadrant laterally. A Ashok liver retractor was placed percutaneously in the subxiphoid position and used to elevate the left lobe of the liver. Gastric anatomy revealed that there was a moderate-sized hiatal hernia. This appeared to contain only fat. The fat was reduced and the inspection revealed the gastric anatomy to be otherwise normal. Dissection was undertaken on the lesser curvature in order to enter the lesser sac and the gastric pouch was created using several firings of the Endo NOE stapler with alejo cartridges. The gastric pouch approximated 15 to 20 mL volume. The staple lines were noted to be intact and hemostatic. Next, the omentum was freed from its adhesions to the anterior abdominal wall in the lower abdomen. Then the omentum was retracted superiorly. The omentum was divided down the midline with a LigaSure to allow path for the Angelica limb. The ligament of Treitz was identified and the jejunum was measured at approximately 50 cm and this loop of intestine was sutured to the left lateral staple line of the gastric pouch. This was done with 2- 0 silks. Next, a gastrojejunal anastomosis was created using a 30-mm alejo linear stapler on the NOE. The common enterotomy was closed with running 3-0 PDS suture. The loop of jejunum was divided to the left side of the anastomosis to complete it. The anastomosis was then tested through a methylene blue dye testing that was instilled through a 34-Luxembourgish orogastric tube. The same tube had been used to set the anastomosis as the enterotomy was closed. After showing no leaks, the tube was withdrawn. The Angelica limb was then measured out for 75 cm and a proximal end-to - side jejunojejunostomy is performed with a 60-mm alejo cartridge on the Endo NOE stapler. The common enterotomy was also closed with 3-0 PDS running to and fro. Anti-obstruction sutures of 3-0 silk were placed proximally and distally at the anastomosis. The mesenteric defect was closed with 3-0 silk in an interrupted anexoq-nd-trbje fashion. After assuring hemostasis, the liver retractor and ports were removed. Carbon dioxide was released. The skin incisions were closed with 4- 0 Monocryl in a subcuticular fashion and Steri- Strips were applied. The patient tolerated this procedure well. She was extubated and transferred to the recovery room in a stable condition. [id number]/[facility] #: [id number] GONSALO
[2018-08-12 11:22] VITALS: BP 150/91
--- NOTE | 2018-08-13 06:54 | DS ---
AMENDED REPORT NOW INCLUDES DESIGNATED COSIGNER CC: Dr. Courtney; [facility], Attention: Hetal St NP * DISCHARGE SUMMARY: DATE OF ADMISSION: 08/10/18 DATE OF DISCHARGE: 08/12/18 ATTENDING SURGEON: Sohail Courtney MD * (DICTATED BY RAS SAVAGE NP) HOSPITAL COURSE: Please refer to admission history and physical for admission details. The patient was taken to the operating room on 08/10/18, and underwent laparoscopic Angelica-En-Y gastric bypass by Dr. Courtney. She had an uneventful postoperative course and required minimal pain medication and was able to meet the criteria for oral intake of bariatric clear liquids. She was ambulating in the halls and using her Inspiron. She was seen earlier this morning by Dr. Courtney and myself and she met criteria for discharge. PHYSICAL EXAMINATION: General: Well appearing, in no acute distress. Vital signs stable. Temp 99 max. O2 saturation on room air is 95%. Lungs: Breath sounds bilaterally clear and equal. Heart: Regular rate and rhythm. No murmurs or rubs appreciated. Abdomen: Laparoscopic port sites are intact, clean, and dry. No surrounding erythema, active bowel sounds; abdomen is soft with minimal incisional tenderness. Skin: Warm and dry. Extremities: Nontender calves. IMPRESSION: Status post Angelica-En-Y gastric bypass, doing extremely well. PLAN: Discharge home today; instructions were reviewed with the patient; all of her medications were reviewed and she will monitor her fingerstick glucose at home as usual. She has a prescription for Lortab Elixir as needed and she may use over- the-counter Tylenol for mild pain. She has a followup appointment at [facility] on 08/19/18 and knows to call anytime with concerns. RAS SAVAGE NP [id number]/[facility] #: [id number] GONS[place]
== END 2018-08-12 11:55 | disposition home or self-care (01) | DRG 621 ==
LOC: AA 08-10 08:13 → SSU 08-10 12:43
PROVIDERS: ADMIT Surgery; ATTEND Surgery
PROC: 0D164ZB Bypass Stomach to Ileum, Percutaneous Endoscopic Approach (ICD-10-PCS; principal; 2018-08-10 10:15)
DX: E66.01 Morbid (severe) obesity due to excess calories (principal); E11.9 Type 2 diabetes mellitus without complications; K44.9 Diaphragmatic hernia without obstruction or gangrene; G47.33 Obstructive sleep apnea (adult) (pediatric); K21.9 Gastro-esophageal reflux disease without esophagitis; I10 Essential (primary) hypertension; K29.70 Gastritis, unspecified, without bleeding; E78.5 Hyperlipidemia, unspecified; E89.0 Postprocedural hypothyroidism; Z83.3 Family history of diabetes mellitus; Z80.0 Family history of malignant neoplasm of digestive organs; Z83.49 Family history of other endocrine, nutritional and metabolic diseases; Z87.891 Personal history of nicotine dependence; Z72.89 Other problems related to lifestyle; Z82.49 Family history of ischemic heart disease and other diseases of the circulatory system; Z68.32 Body mass index [BMI] 32.0-32.9, adult
CPT/HCPCS: 43644; A9270-GY; J0690; J1170; J1644; J1885; J2270; J2405; J2704; J2710; J2765; J2795; J3010

== ENCOUNTER → 2018-07-29 08:10 | Day surgery (SDC) | payer OTHER ==
[~2018-07-29 08:10] MED LIST: Heparin 2 UNITS/ML IVPREMIX* 2,000 ML IV ONE; Heparin(*) 1000 UNIT/ML 10 ML VIAL CATH LAB IV ONE; Iodixanol* (CONTRAST) 320 MG/ML 100 ML SDV ONE; Iohexol 350 (CONTRAST) 200 ML MDV IV ONE; Lidocaine 1% INJ* 10 MG/ML 30 ML SDV ONE; Midazolam* 1 MG/ML 10 ML VIAL (10 MG) ONE; NS 0.9% 1000 ML* 1,000 ML IV SCH; VERAPAMIL 2.5 MG/ML 2 ML VIAL ** 5 mg/2 ml ONE; fentaNYL* 50 MCG/ML 2 ML VIAL (100 MCG VIAL) ONE; nitroGLYCERIN DRIP* 25,000 MCG/250 ML BTL ONE
[2018-07-29 13:29] VITALS: BP 136/70
--- NOTE | 2018-07-30 03:50 | CATH ---
CC: Hetal St NP; Dr. Lawson * CATH REPORT: DATE OF CATH: 07/29/18 - [facility] CATH PRIMARY CARE PROVIDER: Hetal St NP PHOTO EQUIPMENT TECHNICIAN: Dr. Lawson. PROCEDURE: Right common femoral artery access, bilateral selective coronary cineangiography, Angio-Seal right common femoral artery. HISTORY: A 62-year-old diabetic with nuclear stress imaging study demonstrating transient ischemic dilatation without perfusion abnormality, referred for coronary angiography prior to undergoing bariatric surgery. PROCEDURE ACCESS: Right radial artery was too small by ultrasound. Right femoral artery was used with a 6.5 Latvian sheath. DIAGNOSTIC CATHETERS: 6-FL 3.5, 6-FR 4. MEDICATIONS: 1. Subcu lidocaine. 2. IV Versed. 3. IV fentanyl. HEMODYNAMICS: Initial AO 135/61. ANGIOGRAPHY: RFA: Sheath entry is in segment 2, there is no stenosis. Left main: The left main is normal in size and length, has no stenosis. LAD: The LAD is moderate, extends past the apex. It supplies a moderate diagonal branch which has minor proximal luminal irregularity. The LAD system has no significant stenosis. Circumflex: The circumflex is moderate, not dominant, with a small to moderate ramus, a moderate posterolateral. The circumflex has no stenosis. RCA: The RCA is dominant, small to moderate with a small PDA, the RCA has no stenosis. CONCLUSION: 1. No significant obstructive coronary artery disease. 2. Successful right femoral artery access with Angiography-Seal closure. 3. False-positive transient ischemic dilatation on stress imaging study. [id number]/[facility] #: [id number] MTDD
== END | disposition home or self-care (01) ==
LOC: CHICATH 08:10
PROVIDERS: ATTEND Internal Medicine Cardiovascular Disease
DX: Z01.810 Encounter for preprocedural cardiovascular examination (principal); R94.39 Abnormal result of other cardiovascular function study; R94.31 Abnormal electrocardiogram [ECG] [EKG]; E11.9 Type 2 diabetes mellitus without complications; Z79.4 Long term (current) use of insulin; Z79.84 Long term (current) use of oral hypoglycemic drugs; R06.00 Dyspnea, unspecified; E66.9 Obesity, unspecified; E78.2 Mixed hyperlipidemia; R07.9 Chest pain, unspecified; R00.0 Tachycardia, unspecified; Z87.891 Personal history of nicotine dependence; I27.20 Pulmonary hypertension, unspecified; I34.0 Nonrheumatic mitral (valve) insufficiency; G47.33 Obstructive sleep apnea (adult) (pediatric)
CPT/HCPCS: 93454; 99156; C1760; C1887; J1644; J2250; J3010

== ENCOUNTER 2018-10-27 10:52 | Day surgery (SDC) | payer OTHER ==
[~2018-10-27 10:52] MED LIST changes: +Acetaminophen TAB* 325 MG PO PRN; +Buffered Lidocaine 1% SYRIN* 1 ML/SYRINGE INTRADERM ONE; -Heparin 2 UNITS/ML IVPREMIX* 2,000 ML IV ONE; -Heparin(*) 1000 UNIT/ML 10 ML VIAL CATH LAB IV ONE; -Iodixanol* (CONTRAST) 320 MG/ML 100 ML SDV ONE; -Iohexol 350 (CONTRAST) 200 ML MDV IV ONE; -Lidocaine 1% INJ* 10 MG/ML 30 ML SDV ONE; -Midazolam* 1 MG/ML 10 ML VIAL (10 MG) ONE; -NS 0.9% 1000 ML* 1,000 ML IV SCH; -VERAPAMIL 2.5 MG/ML 2 ML VIAL ** 5 mg/2 ml ONE; -fentaNYL* 50 MCG/ML 2 ML VIAL (100 MCG VIAL) ONE; -nitroGLYCERIN DRIP* 25,000 MCG/250 ML BTL ONE
[2018-10-27] MEDS ORDERED: Midazolam* 1 MG/ML 5 ML VIAL (5 MG) ONE (12:55)
[2018-10-27] MEDS ORDERED: fentaNYL* 50 MCG/ML 2 ML VIAL (100 MCG VIAL) ONE (13:25)
[2018-10-27 13:58] VITALS: BP 120/55
[2018-10-27] MEDS ORDERED: acetaZOLAMIDE TAB* 250 MG ONE (15:43)
[2018-10-27] MEDS ORDERED: Phenylephrine 2.5% OPTH.SOL* 2 ML BTL ONE (15:43)
[2018-10-27] MEDS ORDERED: Cyclopentolate 1% OPTH.SOL* 2 ML BTL ONE (15:43)
[2018-10-27] MEDS ORDERED: Lidocaine 2% EPI 1:200000 MPF*10-20 ML VIAL ONE (15:43)
[2018-10-27] MEDS ORDERED: Neomycin/Polymy/Dex OPTH.SUSP* MAXITROL 0.1% 5 ML ONE (15:43)
[2018-10-27] MEDS ORDERED: Ketorolac 0.5% OPHTH (NF) 0.5 % 5 ML BTL ONE (15:43)
[2018-10-27] MEDS ORDERED: Lidocaine 1%* 5 ML VIAL ONE (15:43)
[2018-10-27] MEDS ORDERED: Povidone Iodine 5% OPTH* 30 ML BTL ONE (15:43)
[2018-10-27] MEDS ORDERED: Proparacaine 0.5% OPHTH.SOL* 15 ML BTL ONE (15:44)
--- NOTE | 2018-10-27 16:12 | OP ---
DATE OF OPERATION: 10/27/2018. DATE OF : 1955. SURGEON: Eric Mascorro M.D. PREOPERATIVE DIAGNOSIS: Cataract left eye. POSTOPERATIVE DIAGNOSIS: Cataract left eye. OPERATIVE PROCEDURE: Extracapsular cataract extraction with intraocular lens implant left eye. PROCEDURE: The patient was brought to the operating room after being given 1/2% Alcaine with epineph rine drops in the preoperative area. The eye was prepped and draped in the usual sterile fashion. S terile drape and eyelid speculum were placed. Again, topical 1/2% Alcaine with epinephrine was given . A paracentesis incision was made at the 3 o'clock position with the No.75 blade. Clear cornea inc ision 2.2 x 2.2-mm was created at the 6 o'clock position starting at the anterior limbus using the 2. 2-mm keratome. The anterior chamber was irrigated with 0.4 mL of 1% non-preservative intracameral li docaine and filled with DisCoVisc. A capsulorrhexis was completed using the cystotome and the Utrata forceps. Hydrodissection was performed with balanced salt solution. The lens nucleus was removed wi th the Phacoemulsification handpiece without incident. Cortex was removed with the irrigation-aspira tion handpiece. The capsular bag was re-inflated using DisCoVisc and an [id number] implant was insert ed with the shooter. The irrigation-aspiration handpiece was used to remove all residual DisCoVisc. The eye was refilled with balanced salt solution and the wound checked and found to be watertight. Topical Maxitrol drops were given. [id number]/[facility] #: [id number]
== END 2018-10-27 13:50 | disposition home or self-care (01) ==
LOC: OREAST 10:52
PROVIDERS: ATTEND Specialist
PROC: 08RK3JZ Replacement of Left Lens with Synthetic Substitute, Percutaneous Approach (ICD-10-PCS; principal; 2018-10-27 13:00)
DX: H25.812 Combined forms of age-related cataract, left eye (principal); E11.3213 Type 2 diabetes mellitus with mild nonproliferative diabetic retinopathy with macular edema, bilateral; Z79.4 Long term (current) use of insulin; Z87.891 Personal history of nicotine dependence
CPT/HCPCS: A9270-GY; J2250; J3010; V2632

== ENCOUNTER 2020-06-30 09:51 | Inpatient (IN) ==
[2020-06-30] MEDS ORDERED: NS 0.9% 1000 ml BAG 1,000 ML IV ONE ×3 (09:54→10:04)
[2020-06-30] MEDS ORDERED: Dextrose 50% Syringe 50 ml 25 GM/50 ML SYRINGE ONE (10:22)
[2020-06-30] MEDS ORDERED: Dextrose 50% VIAL 50 ml IV PRN (10:25)
[2020-06-30 11:11] LABS: ABS Eosinophils 0.1 10^3/ul (0-0.6); ABS Lymphocytes 0.9 10^3/ul (1.0-4.8); ABS Monocytes 0.3 10^3/ul (0-0.8); ABS Neutrophils 7.9 10^3/ul (1.5-7.7); Eosinophil % 0.8 %; Hematocrit 32 % (35-47); Hemoglobin 10.5 g/dL (12.0-16.0); Lymphocyte % 9.9 %; Mean Corpuscular HGB Conc 33 g/dL (31-36); Mean Corpuscular Hemoglobin 31 pg (27-31); Mean Corpuscular Volume 94 fL (80-97); Mean Platelet Volume 7.6 fL (7.4-10.4); Platelet Count 474 10^3/uL (150-450); Red Blood Count 3.42 10^6 /uL (3.70-4.87); Red Cell Distribution Width 14 % (10-15); White Blood Count 9.2 10^3/uL (3.5-10.8)
[2020-06-30 11:28] LABS: Urine Appearance Clear; Urine Bilirubin Negative (Negative); Urine Blood Negative (Negative); Urine Color Yellow; Urine Glucose Negative (Negative); Urine Ketones Negative (Negative); Urine Nitrite Negative (Negative); Urine Protein 1+(30 mg/dL) (Negative); Urine Specific Gravity 1.013 (1.010-1.030); Urine Urobilinogen Negative (Negative)
[2020-06-30 11:29] LABS: ALT 14 U/L (7-52); AST 14 U/L (13-39); Albumin 3.3 g/dL (3.2-5.2); Albumin/Globulin Ratio 1.4 (1-3); Alkaline Phosphatase 81 U/L (34-104); BUN/Creatinine Ratio 26.7 (8-20); Blood Urea Nitrogen 27 mg/dL (6-24); Calcium 8.5 mg/dL (8.6-10.3); Cholesterol 135 mg/dL; EGFR African American 66.8 (>60); EGFR Non-African American 55.2 (>60); Globulin 2.3 g/dL (2-4); Glucose 170 mg/dL (70-100); HDL Cholesterol 37.2 mg/dL; LDL Cholesterol 63 mg/dL; Potassium 3.7 mmol/L (3.5-5.0); Sodium 137 mmol/L (135-145); Total Protein 5.6 g/dL (6.4-8.9); Triglycerides 175 mg/dL
[2020-06-30 11:38] LABS: Urine Bacteria Absent (Absent); Urine Red Blood Cell Trace(0-2/hpf) (Absent); Urine White Blood Cell Trace(0-5/hpf) (Absent)
[2020-06-30 11:54] LABS: Anion Gap 9 mmol/L (2-11); CO2 Carbon Dioxide 10 mmol/L (22-32); Chloride 118 mmol/L (101-111)
[2020-06-30] MEDS ORDERED: Acetaminop/Codeine 300mg/30mg TAB PO ONE (13:05)
[2020-06-30] MEDS ORDERED: Ondansetron 4 mg VIAL 2 MG/ML 2 ml VIAL IV PRN (13:17)
[2020-06-30 14:38] LABS: BUN/Creatinine Ratio 22.8 (8-20); Blood Urea Nitrogen 23 mg/dL (6-24); Calcium 7.9 mg/dL (8.6-10.3); EGFR African American 66.8 (>60); EGFR Non-African American 55.2 (>60); Glucose 96 mg/dL (70-100); Potassium 3.7 mmol/L (3.5-5.0); Sodium 141 mmol/L (135-145)
[2020-06-30 14:40] LABS: Chloride 122 mmol/L (101-111)
[2020-06-30 14:44] LABS: Anion Gap 8 mmol/L (2-11); CO2 Carbon Dioxide 11 mmol/L (22-32); Troponin I 0.21 ng/mL (<0.03)
[2020-06-30 15:10] LABS: INR 0.96 (0.82-1.09)
[2020-06-30 15:24] LABS: TSH Ultra Thyroid Stim Horm 0.06 mcIU/mL (0.34-5.60)
[2020-06-30] MEDS ORDERED: Sodium Bicarbonate 8.4% SYR 50 ml SYRINGE IV ONE ×2 (15:49→18:01)
[2020-06-30] MEDS ORDERED: NS IV SCH (16:00)
[2020-06-30] MEDS ORDERED: SODIUM BICARB IV SCH (16:00)
[2020-06-30 16:53] LABS: Free T4 1.07 ng/dL (0.61-1.12)
[2020-06-30] MEDS ORDERED: Sodium Bicarb 8.4% Vial 50 ML 75 MEQ in NS 0.45% 1000 ml BAG 925 ML IV SCH (17:00)
[2020-06-30] MEDS ORDERED: Potassium Chlor 20 meq TAB.ER PO ONE (17:13)
[2020-06-30 17:54] LABS: Troponin I 0.27 ng/mL (<0.03)
[2020-06-30] MEDS ORDERED: KCL 10 MEQ/50 ML IVPREMIX 10 MEQ/50 ML BAG IV ONE (18:43)
[2020-06-30] MEDS ORDERED: Sodium Citrate/Citric Acid LIQ 15 ML UDC PO SCH (19:00)
[2020-06-30] MEDS ORDERED: Sodium Bicarb 8.4% Vial 50 ML 150 MEQ in D5W 1000 ml BAG 850 ML IV SCH (19:00)
[2020-06-30 20:25] LABS: Urine Potassium Concentration 11.9 mmol/L
[2020-06-30 20:33] LABS: Urine Creatinine Concentration 18.94 mg/dL
[2020-06-30 20:45] LABS: Hematocrit 30 % (35-47); Hemoglobin 9.6 g/dL (12.0-16.0); Mean Corpuscular HGB Conc 33 g/dL (31-36); Mean Corpuscular Hemoglobin 30 pg (27-31); Mean Corpuscular Volume 92 fL (80-97); Mean Platelet Volume 7.3 fL (7.4-10.4); Platelet Count 489 10^3/uL (150-450); Red Blood Count 3.21 10^6 /uL (3.70-4.87); Red Cell Distribution Width 14 % (10-15); White Blood Count 8.6 10^3/uL (3.5-10.8)
[2020-06-30] MEDS: Heparin 5000 UNITS/ML 1 mL VIAL SUBCUT SCH (20:47)
[2020-06-30 21:08] LABS: ALT 13 U/L (7-52); AST 14 U/L (13-39); Albumin 2.8 g/dL (3.2-5.2); Albumin/Globulin Ratio 1.2 (1-3); Alkaline Phosphatase 87 U/L (34-104); BUN/Creatinine Ratio 19.4 (8-20); Blood Urea Nitrogen 19 mg/dL (6-24); CO2 Carbon Dioxide 17 mmol/L (22-32); Calcium 7.8 mg/dL (8.6-10.3); EGFR African American 69.1 (>60); EGFR Non-African American 57.1 (>60); Globulin 2.4 g/dL (2-4); Glucose 117 mg/dL (70-100); Magnesium 1.6 mg/dL (1.9-2.7); Phosphorus 2.9 mg/dL (2.5-5.0); Potassium 3.4 mmol/L (3.5-5.0); Sodium 141 mmol/L (135-145); Total Protein 5.2 g/dL (6.4-8.9)
[2020-06-30 21:12] LABS: Anion Gap 6 mmol/L (2-11); Chloride 118 mmol/L (101-111); Troponin I 0.28 ng/mL (<0.03)
[2020-07-01] MEDS ORDERED: Magnesium Sulfate 2 gm BAG 2 GM/50 ML BAG IVPB ONE (00:11)
[2020-07-01] MEDS ORDERED: Potassium Chlor 20 meq TAB.ER PO ONE (00:15)
[2020-07-01] MEDS ORDERED: Sodium Bicarb 8.4% Vial 50 ML 150 MEQ in D5W 1000 ml BAG 850 ML IV SCH (00:30)
[2020-07-01 01:31] LABS: Troponin I 0.33 ng/mL (<0.03)
[2020-07-01 06:05] LABS: ABS Basophils 0.1 10^3/ul (0-0.2); ABS Eosinophils 0.3 10^3/ul (0-0.6); ABS Lymphocytes 2.6 10^3/ul (1.0-4.8); ABS Monocytes 0.5 10^3/ul (0-0.8); ABS Neutrophils 4.3 10^3/ul (1.5-7.7); Eosinophil % 3.3 %; Hematocrit 27 % (35-47); Hemoglobin 9.2 g/dL (12.0-16.0); Mean Corpuscular HGB Conc 34 g/dL (31-36); Mean Corpuscular Hemoglobin 31 pg (27-31); Mean Corpuscular Volume 91 fL (80-97); Mean Platelet Volume 7.4 fL (7.4-10.4); Platelet Count 449 10^3/uL (150-450); Red Blood Count 2.99 10^6 /uL (3.70-4.87); Red Cell Distribution Width 14 % (10-15); White Blood Count 7.8 10^3/uL (3.5-10.8)
[2020-07-01] MEDS ORDERED: Potassium Chloride LIQUID 20 MEQ/15 ML LIQUID PO ONE (06:14)
[2020-07-01] MEDS ORDERED: Magnesium Sulf 4 GM/100 ML IV 4,000 MG/100 ML BAG IVPB ONE (06:14)
[2020-07-01 06:21] LABS: BUN/Creatinine Ratio 19.3 (8-20); Blood Urea Nitrogen 16 mg/dL (6-24); CO2 Carbon Dioxide 16 mmol/L (22-32); Calcium 7.8 mg/dL (8.6-10.3); EGFR African American 83.7 (>60); EGFR Non-African American 69.2 (>60); Glucose 99 mg/dL (70-100); Potassium 3.8 mmol/L (3.5-5.0); Sodium 141 mmol/L (135-145)
[2020-07-01 06:28] LABS: Anion Gap 6 mmol/L (2-11); Chloride 119 mmol/L (101-111)
[2020-07-01] MEDS: Heparin 5000 UNITS/ML 1 mL VIAL SUBCUT SCH ×2 (08:41→20:26)
[2020-07-01 08:46] LABS: Magnesium 2.1 mg/dL (1.9-2.7)
[2020-07-01] MEDS ORDERED: Fluticasone NASAL SPRAY 50MCG 16 gm SPRAY BTL BOTH NARES SCH (09:00)
[2020-07-01] MEDS ORDERED: Cholecalciferol (VIT D3) 1,000 unit TAB PO SCH (09:00)
[2020-07-01] MEDS ORDERED: Vitamin THERAPEUTIC TAB PO SCH (09:00)
[2020-07-01] MEDS: Acetaminop/Codeine 300mg/30mg TAB PO PRN ×2 (13:56→20:27)
[2020-07-01] MEDS ORDERED: Sodium Bicarb 650 mg (ANTACID) TAB PO SCH (14:00)
[2020-07-01] MEDS ORDERED: Dextrose 50% Syringe 50 ml 25 GM/50 ML SYRINGE IV PUSH PRN (19:58)
[2020-07-01] MEDS: Sodium Bicarb 650 mg (ANTACID) TAB PO SCH (20:28)
[2020-07-02] MEDS: Acetaminop/Codeine 300mg/30mg TAB PO PRN ×5 (01:12→19:05)
[2020-07-02] MEDS: Sodium Bicarb 650 mg (ANTACID) TAB PO SCH ×2 (07:51→20:57)
[2020-07-02] MEDS: Heparin 5000 UNITS/ML 1 mL VIAL SUBCUT SCH ×2 (07:51→20:57)
[2020-07-02 13:24] LABS: % Iron Saturation 30 % (15-55); Iron 76 ug/dL (50-212); Total Iron Binding Capacity 256 mcg/dL (250-450); Transferrin 183 mg/dL (203-362); Unsaturated Iron Binding < 241 ug/dL
[2020-07-03] MEDS: Acetaminop/Codeine 300mg/30mg TAB PO PRN (06:14)
[2020-07-03 07:34] LABS: BUN/Creatinine Ratio 16.7 (8-20); Calcium 8.3 mg/dL (8.6-10.3); EGFR African American 70.8 (>60); EGFR Non-African American 58.5 (>60); Potassium 3.9 mmol/L (3.5-5.0)
[2020-07-03 08:15] LABS: Ferritin 29.7 ng/mL (11-307)
[2020-07-03] MEDS: Sodium Bicarb 650 mg (ANTACID) TAB PO SCH (08:28)
[2020-07-03] MEDS: Heparin 5000 UNITS/ML 1 mL VIAL SUBCUT SCH (08:30)
[2020-07-03 12:13] VITALS: BP 132/63
== END 2020-07-03 14:00 | disposition home or self-care (01) | DRG 637 ==
LOC: ED 09:51 → MEDTELE 09:51 → OBSVTOIN 13:05 → ICU 19:00 → MEDTELE 07-01 16:39
PROVIDERS: ADMIT Internal Medicine; ATTEND Internal Medicine

== ENCOUNTER 2024-05-22 06:25 | Observation (INO) ==
[2024-05-22 07:10] LABS: ABS Eosinophils 0.1 10^3/uL (0.0-0.5); ABS Lymphocytes 1.5 10^3/uL (1.0-4.8); ABS Monocytes 0.8 10^3/uL (0.0-0.9); ABS Neutrophils 10.9 10^3/uL (1.5-7.6); ABS Nucleated RBC 0.02 10^3/ul; Eosinophil % 0.6 %; Hematocrit 40.5 % (35-45); Hemoglobin 13.7 g/dL (11.5-14.3); Lymphocyte % 11.3 %; Mean Corpuscular Hemoglobin 33.2 pg (27-33); Mean Corpuscular Hgb Conc 33.9 g/dL (31-36); Mean Corpuscular Volume 98.1 fL (80-97); Mean Platelet Volume 6.7 fL (7.5-11.2); Nucleated Red Blood Cells % 0.2 %/100WBC (0.0-0.8); Platelet Count 532 10^3/uL (150-450); Red Blood Count 4.13 10^6/uL (3.63-4.92); Red Cell Distribution Width 13.7 % (12-17); White Blood Count 13.3 10^3/uL (3.8-11.8)
[2024-05-22 07:27] LABS: INR 1.03 (0.83-1.13)
[2024-05-22] MEDS: Lactated Ringers 1000 ml BAG 1,000 ML IV ONE (08:08)
[2024-05-22 08:26] LABS: Albumin/Globulin Ratio 1.3 (1-3); Calcium 7.1 mg/dL (8.6-10.3); Creatinine, Serum 1.06 mg/dL (0.51-0.95); Globulin 2.4 g/dL (2-4); Magnesium 1.1 mg/dL (1.9-2.7); Potassium 2.8 mmol/L (3.5-5.0); Total Bilirubin 0.5 mg/dL (0.2-1.0); Total Protein 5.4 g/dL (6.4-8.9); eGFR CKD-EPI 57.2 (>60)
[2024-05-22 08:45] LABS: High Sensitivity Troponin 1 Hr 91 pg/mL (<15)
[2024-05-22] MEDS: Potassium Chlor 20 meq TAB.ER PO ONE (10:59)
[2024-05-22] MEDS: Magnesium Sulfate IV 1GM/100ML 1 GM/100 ML BAG IV ONE (11:00)
[2024-05-22] MEDS: KCL 20 MEQ/100 ML IVPREMIX 20 MEQ/100 ML BAG IV ONE (11:00)
[2024-05-22] MEDS: Magnesium Sulfate 2 gm BAG 2 GM/50 ML BAG IVPB ONE (12:41)
[2024-05-22 14:54] LABS: Calcium 7.1 mg/dL (8.6-10.3); Creatinine, Serum 1.03 mg/dL (0.51-0.95); Magnesium 2.6 mg/dL (1.9-2.7); Potassium 4.6 mmol/L (3.5-5.0); eGFR CKD-EPI 59.2 (>60)
[2024-05-22] MEDS ORDERED: Ondansetron 4 mg VIAL 2 MG/ML 2 ml VIAL IV PRN (17:25)
[2024-05-22] MEDS: Lactated Ringers 1000 ml BAG 1,000 ML IV SCH (17:38)
[2024-05-22] MEDS ORDERED: Dextrose 50% Syringe 50 ml 25 GM/50 ML SYRINGE IV PUSH PRN (17:48)
[2024-05-22] MEDS: Sulfur Hexaflouride MICROSPHR 25 MG VIAL IV ONE (20:50)
[2024-05-23 07:03] LABS: ABS Eosinophils 0.1 10^3/uL (0.0-0.5); ABS Lymphocytes 1.8 10^3/uL (1.0-4.8); ABS Monocytes 0.7 10^3/uL (0.0-0.9); ABS Neutrophils 9.7 10^3/uL (1.5-7.6); ABS Nucleated RBC 0.01 10^3/ul; Eosinophil % 0.7 %; Hematocrit 35.9 % (35-45); Hemoglobin 12.1 g/dL (11.5-14.3); Lymphocyte % 14.6 %; Mean Corpuscular Hemoglobin 33.1 pg (27-33); Mean Corpuscular Hgb Conc 33.8 g/dL (31-36); Mean Corpuscular Volume 97.8 fL (80-97); Mean Platelet Volume 6.8 fL (7.5-11.2); Nucleated Red Blood Cells % 0.1 %/100WBC (0.0-0.8); Platelet Count 515 10^3/uL (150-450); Red Blood Count 3.67 10^6/uL (3.63-4.92); Red Cell Distribution Width 13.5 % (12-17); White Blood Count 12.3 10^3/uL (3.8-11.8)
[2024-05-23 07:39] LABS: Calcium 7.3 mg/dL (8.6-10.3); Creatinine, Serum 0.99 mg/dL (0.51-0.95); Magnesium 1.6 mg/dL (1.9-2.7); Potassium 4.2 mmol/L (3.5-5.0); eGFR CKD-EPI 62.1 (>60)
[2024-05-23] MEDS: Multivitamins/Minerals TAB PO SCH (08:49)
[2024-05-23] MEDS: Magnesium Sulfate 2 gm BAG 2 GM/50 ML BAG IVPB ONE (11:45)
[2024-05-23] MEDS: Fluticasone NASAL SPRAY 50MCG 16 gm SPRAY BTL INTRANASAL SCH (14:02)
[2024-05-23] MEDS ORDERED: Sulfur Hexaflouride MICROSPHR 25 MG VIAL ONE (15:36)
[2024-05-23] MEDS: Sulfur Hexaflouride MICROSPHR 25 MG VIAL IV ONE (16:05)
[2024-05-24 06:08] LABS: ABS Eosinophils 0.1 10^3/uL (0.0-0.5); ABS Lymphocytes 1.7 10^3/uL (1.0-4.8); ABS Monocytes 0.6 10^3/uL (0.0-0.9); ABS Neutrophils 12.3 10^3/uL (1.5-7.6); Eosinophil % 0.6 %; Hematocrit 35.1 % (35-45); Hemoglobin 11.4 g/dL (11.5-14.3); Lymphocyte % 11.8 %; Mean Corpuscular Hemoglobin 31.9 pg (27-33); Mean Corpuscular Hgb Conc 32.5 g/dL (31-36); Mean Corpuscular Volume 98.1 fL (80-97); Platelet Count 519 10^3/uL (150-450); Red Blood Count 3.57 10^6/uL (3.63-4.92); Red Cell Distribution Width 13.9 % (12-17); White Blood Count 14.8 10^3/uL (3.8-11.8)
[2024-05-24 06:30] LABS: Calcium 7.4 mg/dL (8.6-10.3); Creatinine, Serum 0.91 mg/dL (0.51-0.95); Magnesium 1.4 mg/dL (1.9-2.7); Potassium 3.9 mmol/L (3.5-5.0); eGFR CKD-EPI 68.7 (>60)
[2024-05-24] MEDS: Magnesium Sulf 4 GM/100 ML IV 4,000 MG/100 ML BAG IVPB ONE (10:04)
[2024-05-24 13:49] VITALS: BP 120/71
== END 2024-05-24 15:00 | disposition home or self-care (01) ==
LOC: EDHOLD 06:25 → ED 06:25 → MEDTELE 20:55
PROVIDERS: ADMIT Internal Medicine; ATTEND Internal Medicine